=== PATIENT | male | born 1990 | race Caucasian/White ===

== ENCOUNTER 2021-09-05 17:33 | Emergency (ER) | payer MEDICAID, SELFPAY ==
[~2021-09-05] VITALS: Ht 188 cm; Wt 131.5 kg
--- NOTE | 2021-09-05 17:45 | NUR ---
Pt triaged and placed in tent.
[2021-09-05 17:49] VITALS: BP_SYST 144
--- NOTE | 2021-09-05 17:50 | NUR ---
Pt walked in to ER with c/o NAYAK, body aches, n/v and fatigue for over 2 weeks. Denies any known covid exposure, reports testing negative 2 weeks ago. V/S stable, no acute distress noted.
[2021-09-05 17:57] VITALS: BP_SYST 144
--- NOTE | 2021-09-05 19:15 | NUR ---
Called patient x 3, no answer. Patient left without being seen. No further treartment done. ER MD aware
== END 2021-09-05 19:15 | disposition left against medical advice (07) ==
LOC: SED 17:33
DX: R09.81 Nasal congestion (principal); M79.18 Myalgia, other site; Z53.21 Procedure and treatment not carried out due to patient leaving prior to being seen by health care provider